=== PATIENT | female | born 1950 | race Caucasian/White ===

== ENCOUNTER 2020-03-22 18:05 | Emergency (ER) | payer OTHER | END 2020-03-22 18:20 | disposition home or self-care (01) | LOC: JVIRT 18:05 | DX: Z20.822 Contact with and (suspected) exposure to COVID-19 (principal) | CPT/HCPCS: C9803; G2012-GT; U0003 ==

== ENCOUNTER 2021-02-08 11:58 | Emergency (ER) | payer OTHER ==
[2021-02-08 12:32] VITALS: BP 174/63; PULSE 67; TEMP 98.9; BMI 30.8
[2021-02-08 13:11] LABS: EPITHELIAL CELLS MODERATE /hpf
[2021-02-08 14:00] LABS: BILIRUBIN,TOTAL 0.2 mg/dl (0.2-1); CALCIUM 8.5 mg/dl (8.5-10); CREATININE 3.3 mg/dl (0.55-1.3); TOT PROT 5.6 g/dl (6.4-8.2)
[2021-02-08 15:22] LABS: BASO % 0.8 % (0-2.0); EOS % 6.4 % (0-4.5); HEMATOCRIT 35.7 % (32.4-45.2); HEMOGLOBIN 12.1 GM/dL (10.7-15.3); LYMPH % 22.1 % (8-40); MCH 30.7 pg (25.7-33.7); MCHC 33.8 g/dl (32.0-36.0); MEAN CELL VOLUME 90.7 fl (80-96); MEAN PLT VOLUME 7.5 fl (7.5-11.1); NEUT % 64.7 % (42.8-82.8); PLATELET COUNT 252 10^3/uL (134-434); RBC 3.93 M/mm3 (3.60-5.2); RDW 14.1 % (11.6-15.6); WHITE BLOOD COUNT 8.4 K/mm3 (4.0-10.0)
[2021-02-08] MEDS ORDERED: NITROFURANTOIN MACROCRYSTAL 50 MG CAPSULE (FP) ONE (15:43)
[2021-02-08] MEDS ORDERED: NITROFURANTOIN MACROCRYSTAL 50 MG CAPSULE (FP) PO SCH (15:45)
[2021-02-10 00:07] LABS: SARS-CoV-2 NAA Not Detected (Not Detected)
== END 2021-02-08 15:50 | disposition left against medical advice (07) ==
LOC: FER 11:58
DX: N39.0 Urinary tract infection, site not specified (principal); N17.9 Acute kidney failure, unspecified; I10 Essential (primary) hypertension
CPT/HCPCS: 36415; 80053; 81003; 81015; 85025; 87086; 99283-25; C9803; U0003; U0005

== ENCOUNTER 2021-02-16 12:39 | Inpatient (IN) | payer OTHER ==
[2021-02-16] MEDS ORDERED: ONDANSETRON 4 MG/2 ML VIAL IVPUSH ONE (14:24)
[2021-02-16] MEDS ORDERED: ONDANSETRON 4 MG/2 ML VIAL ONE (14:39)
[2021-02-16 14:43] LABS: BASO % 0.7 % (0-2.0); EOS % 2.9 % (0-4.5); HEMATOCRIT 33.1 % (32.4-45.2); HEMOGLOBIN 11.1 GM/dL (10.7-15.3); LYMPH % 12.5 % (8-40); MCH 30.3 pg (25.7-33.7); MCHC 33.5 g/dl (32.0-36.0); MEAN CELL VOLUME 90.5 fl (80-96); MEAN PLT VOLUME 7.6 fl (7.5-11.1); MONO % 6.8 % (3.8-10.2); NEUT % 77.1 % (42.8-82.8); PLATELET COUNT 282 10^3/uL (134-434); RBC 3.66 M/mm3 (3.60-5.2); RDW 13.7 % (11.6-15.6); WHITE BLOOD COUNT 9.6 K/mm3 (4.0-10.0)
[2021-02-16 15:06] LABS: CHLORIDE 105 mmol/L (98-107); SODIUM 132 mmol/L (136-145)
[2021-02-16 15:08] LABS: CALCIUM 8.4 mg/dL (8.5-10.1)
[2021-02-16 15:09] LABS: ALBUMIN 2.6 g/dl (3.4-5.0); CO2 15 mmol/L (21-32); GLUCOSE,RANDOM 143 mg/dL (74-106)
[2021-02-16 15:12] LABS: CREATININE 4.9 mg/dL (0.55-1.3); SGOT/AST 26 U/L (15-37)
[2021-02-16 15:13] LABS: BILIRUBIN,TOTAL 0.2 mg/dL (0.2-1)
[2021-02-16 15:14] LABS: TOT PROT 5.6 g/dl (6.4-8.2)
[2021-02-16 15:15] LABS: ALK PHOS 67 U/L (45-117)
[2021-02-16 15:18] LABS: SGPT/ALT 38 U/L (13-61)
[2021-02-16 15:26] LABS: ANION GAP 12 MMOL/L (8-16)
[2021-02-16] MEDS ORDERED: CALCIUM GLUCONATE 10% - 1,000 MG/10 ML VIAL IVPUSH ONE (15:33)
[2021-02-16] MEDS ORDERED: INSULIN REGULAR HUMAN 100 UNITS/ML *VIAL IVPUSH ONE (15:35)
[2021-02-16] MEDS ORDERED: DEXTROSE 50%-WATER - 25 GM/50 ML VIAL IVPUSH ONE (15:35)
[2021-02-16] MEDS ORDERED: LACTATED RINGERS SOLUTION 1000 ML INFUS.BAG IV ONE (15:36)
[2021-02-16] MEDS ORDERED: DEXTROSE 50%-WATER - 25 GM/50 ML VIAL ONE (16:29)
[2021-02-16] MEDS ORDERED: CALCIUM GLUCONATE 10% - 1,000 MG/10 ML VIAL ONE (16:29)
[2021-02-16] MEDS ORDERED: DEXTROSE 50%-WATER 25 GM/50 ML DISP.SYRIN ONE (16:36)
[2021-02-16] MEDS ORDERED: ALBUTEROL SO4 0.083% IH SOL 2.5 MG/3 ML VIAL.NEB. NEB ONE ×2 (16:39→18:06)
[2021-02-16] MEDS ORDERED: SODIUM CHLORIDE 1,000 ML IV STA (17:06)
[2021-02-16] MEDS: SODIUM ZIRCONIUM CYCLOSILICATE (LOKELMA) 5 GM PACKET PO SCH (17:40)
[2021-02-16] MEDS: SODIUM BICARBONATE 8.4% 50 MEQ/50 ML DISP.SYRIN IVPUSH SCH (18:04)
[2021-02-16] MEDS ORDERED: SODIUM ZIRCONIUM CYCLOSILICATE (LOKELMA) 5 GM PACKET ONE (18:06)
[2021-02-16] MEDS ORDERED: SODIUM BICARBONATE 8.4% - 50 ML ONE (18:07)
[2021-02-16] MEDS: SODIUM BICARBONATE 8.4% - 75 MEQ in SODIUM CHLORIDE 0.45% 1,000 ML IV SCH (19:29)
[2021-02-16] MEDS: INSULIN SLIDING SCALE (NOVOLOG) 1 VIAL SQ SCH (23:13)
[2021-02-17 00:11] LABS: CHLORIDE 105 mmol/L (98-107); SODIUM 133 mmol/L (136-145)
[2021-02-17 00:12] LABS: CALCIUM 8.2 mg/dL (8.5-10.1)
[2021-02-17 00:13] LABS: ANION GAP 12 MMOL/L (8-16); CO2 16 mmol/L (21-32); GLUCOSE,RANDOM 137 mg/dL (74-106)
[2021-02-17] MEDS ORDERED: SODIUM BICARBONATE 8.4% 50 MEQ/50 ML DISP.SYRIN IVPUSH ONE (00:15)
[2021-02-17 00:16] LABS: CREATININE 4.9 mg/dL (0.55-1.3)
[2021-02-17] MEDS ORDERED: SODIUM ZIRCONIUM CYCLOSILICATE (LOKELMA) 5 GM PACKET ONE (00:26)
[2021-02-17] MEDS: SODIUM ZIRCONIUM CYCLOSILICATE (LOKELMA) 5 GM PACKET PO SCH (00:30)
[2021-02-17] MEDS ORDERED: HEPARIN NA (PORCINE) 5,000 UNITS/ML 1ML VIAL ONE (00:32)
[2021-02-17] MEDS: HEPARIN NA (PORCINE) 5,000 UNITS/ML 1ML VIAL SQ SCH ×4 (00:36→21:12)
[2021-02-17] MEDS: SODIUM BICARBONATE 8.4% 50 MEQ/50 ML DISP.SYRIN IVPUSH SCH (00:37)
[2021-02-17] MEDS ORDERED: SODIUM BICARBONATE 8.4% - 50 ML ONE (00:39)
[2021-02-17 01:11] LABS: BLOOD UREA NITROGEN 127.5 mg/dL (7-18)
[2021-02-17 02:27] LABS: EPI CELLS 28 /uL (0-25.1); HYALINE CASTS 7 /uL (0-3.1); URINE APPEARANCE CLOUDY; URINE BACTERIA 1416 /uL (0-1359); URINE BILIRUBIN NEGATIVE (NEGATIVE); URINE COLOR YELLOW; URINE GLUCOSE (UA) NEGATIVE (NEGATIVE); URINE KETONE NEGATIVE (NEGATIVE); URINE LEUK ESTERASE 1+ (NEGATIVE); URINE NITRITE NEGATIVE (NEGATIVE); URINE PROTEIN 4+ (NEGATIVE); URINE RBC 34 /uL (0-23.9); URINE UROBILINOGEN 0.2 mg/dL (0.2-1.0); URINE WBC 257 /uL (0-25.8)
[2021-02-17] MEDS: SODIUM BICARBONATE 8.4% - 75 MEQ in SODIUM CHLORIDE 0.45% 1,000 ML IV SCH ×3 (04:21→13:39)
[2021-02-17 04:53] VITALS: BMI 36.0
[2021-02-17] MEDS ORDERED: SODIUM ZIRCONIUM CYCLOSILICATE (LOKELMA) 5 GM PACKET PO SCH (05:15)
[2021-02-17] MEDS: INSULIN SLIDING SCALE (NOVOLOG) 1 VIAL SQ SCH ×4 (06:30→21:16)
[2021-02-17 07:47] LABS: BASO % 0.5 % (0-2.0); EOS % 5.4 % (0-4.5); HEMATOCRIT 28.6 % (32.4-45.2); HEMOGLOBIN 9.6 GM/dL (10.7-15.3); LYMPH % 16.1 % (8-40); MCH 29.9 pg (25.7-33.7); MCHC 33.4 g/dl (32.0-36.0); MEAN CELL VOLUME 89.5 fl (80-96); MEAN PLT VOLUME 7.9 fl (7.5-11.1); MONO % 7.5 % (3.8-10.2); NEUT % 70.5 % (42.8-82.8); PLATELET COUNT 252 10^3/uL (134-434); RDW 13.7 % (11.6-15.6); WHITE BLOOD COUNT 7.4 K/mm3 (4.0-10.0)
[2021-02-17 08:03] LABS: CHLORIDE 106 mmol/L (98-107); SODIUM 136 mmol/L (136-145)
[2021-02-17 08:12] LABS: ALBUMIN 2.3 g/dl (3.4-5.0); ANION GAP 10 MMOL/L (8-16); CALCIUM 8.1 mg/dL (8.5-10.1); CO2 20 mmol/L (21-32); MAGNESIUM 2.5 mg/dL (1.8-2.4)
[2021-02-17 08:13] LABS: GLUCOSE,RANDOM 93 mg/dL (74-106)
[2021-02-17 08:15] LABS: CREATININE 4.8 mg/dL (0.55-1.3); SGOT/AST 17 U/L (15-37); SGPT/ALT 28 U/L (13-61)
[2021-02-17 08:17] LABS: BILIRUBIN,TOTAL 0.5 mg/dL (0.2-1); TOT PROT 4.6 g/dl (6.4-8.2)
[2021-02-17 08:18] LABS: ALK PHOS 53 U/L (45-117)
[2021-02-17 09:14] LABS: PHOSPHOROUS 10.3 mg/dL (2.5-4.9)
[2021-02-17 09:25] LABS: BLOOD UREA NITROGEN 122.4 mg/dL (7-18)
[2021-02-17] MEDS: ONDANSETRON 4 MG/2 ML VIAL IVPUSH PRN ×2 (13:23→18:38)
[2021-02-17] MEDS ORDERED: PT OWN MED DRAWER 7, Y5N ONE (14:10)
[2021-02-17] MEDS: SEVELAMER CARBONATE 800 MG TAB (FP) PO SCH (16:50)
[2021-02-17] MEDS: SODIUM ZIRCONIUM CYCLOSILICATE (LOKELMA) 10 GM PACKET PO SCH (21:51)
[2021-02-18] MEDS: SODIUM BICARBONATE 8.4% - 75 MEQ in SODIUM CHLORIDE 0.45% 1,000 ML IV SCH ×3 (00:19→19:15)
[2021-02-18] MEDS: HEPARIN NA (PORCINE) 5,000 UNITS/ML 1ML VIAL SQ SCH ×3 (06:09→21:24)
[2021-02-18] MEDS: INSULIN SLIDING SCALE (NOVOLOG) 1 VIAL SQ SCH ×4 (06:09→21:24)
[2021-02-18 07:39] LABS: INR 0.97 (0.83-1.09); PROTHROMBIN TIME (PATIENT) 10.9 SEC (9.7-13.0)
[2021-02-18 07:40] LABS: ACTIVATED PTT 29.4 SECONDS (25.2-36.5)
[2021-02-18 07:43] LABS: BASO % 0.7 % (0-2.0); EOS % 8.1 % (0-4.5); HEMATOCRIT 28.9 % (32.4-45.2); HEMOGLOBIN 9.7 GM/dL (10.7-15.3); LYMPH % 18.4 % (8-40); MCH 30.3 pg (25.7-33.7); MCHC 33.7 g/dl (32.0-36.0); MEAN PLT VOLUME 8.1 fl (7.5-11.1); MONO % 8.3 % (3.8-10.2); NEUT % 64.5 % (42.8-82.8); PLATELET COUNT 253 10^3/uL (134-434); RBC 3.21 M/mm3 (3.60-5.2); RDW 13.7 % (11.6-15.6); WHITE BLOOD COUNT 7.8 K/mm3 (4.0-10.0)
[2021-02-18 08:07] LABS: CHLORIDE 102 mmol/L (98-107); SODIUM 136 mmol/L (136-145)
[2021-02-18 08:24] LABS: ANION GAP 14 MMOL/L (8-16); CALCIUM 7.6 mg/dL (8.5-10.1); CO2 20 mmol/L (21-32); MAGNESIUM 2.4 mg/dL (1.8-2.4)
[2021-02-18 08:25] LABS: GLUCOSE,RANDOM 89 mg/dL (74-106)
[2021-02-18 08:29] LABS: TOT PROT 4.8 g/dl (6.4-8.2)
[2021-02-18 08:30] LABS: ALK PHOS 55 U/L (45-117); BILIRUBIN,TOTAL 0.4 mg/dL (0.2-1); SGOT/AST 17 U/L (15-37)
[2021-02-18 08:43] LABS: SGPT/ALT 27 U/L (13-61)
[2021-02-18 08:45] LABS: BLOOD UREA NITROGEN 123.3 mg/dL (7-18)
[2021-02-18] MEDS: SEVELAMER CARBONATE 800 MG TAB (FP) PO SCH ×3 (09:15→17:08)
[2021-02-18] MEDS: SODIUM ZIRCONIUM CYCLOSILICATE (LOKELMA) 10 GM PACKET PO SCH (09:29)
[2021-02-18] MEDS: amLODIPine BESYLATE 10 MG TABLET (FP) PO SCH (11:04)
[2021-02-18] MEDS: ONDANSETRON 4 MG/2 ML VIAL IVPUSH PRN (14:12)
[2021-02-18 18:36] LABS: EPI CELLS >36 /uL (0-25.1); HYALINE CASTS 8 /uL (0-3.1); URINE APPEARANCE TURBID; URINE BACTERIA 2316 /uL (0-1359); URINE BILIRUBIN NEGATIVE (NEGATIVE); URINE COLOR YELLOW; URINE GLUCOSE (UA) NEGATIVE (NEGATIVE); URINE KETONE NEGATIVE (NEGATIVE); URINE LEUK ESTERASE 2+ (NEGATIVE); URINE NITRITE NEGATIVE (NEGATIVE); URINE PROTEIN 4+ (NEGATIVE); URINE RBC 41 /uL (0-23.9); URINE UROBILINOGEN 0.2 mg/dL (0.2-1.0); URINE WBC 623 /uL (0-25.8)
[2021-02-18 22:00] LABS: PHOSPHOROUS 8.7 mg/dL (2.5-4.9)
[2021-02-19] MEDS: HEPARIN NA (PORCINE) 5,000 UNITS/ML 1ML VIAL SQ SCH ×3 (06:14→21:55)
[2021-02-19] MEDS: INSULIN SLIDING SCALE (NOVOLOG) 1 VIAL SQ SCH ×4 (06:23→21:08)
[2021-02-19 08:25] LABS: HEMOGLOBIN 9.5 GM/dL (10.7-15.3); MCH 30.2 pg (25.7-33.7); MCHC 33.8 g/dl (32.0-36.0); MEAN CELL VOLUME 89.3 fl (80-96); MEAN PLT VOLUME 8.1 fl (7.5-11.1); PLATELET COUNT 252 10^3/uL (134-434); RBC 3.14 M/mm3 (3.60-5.2); RDW 13.5 % (11.6-15.6); WHITE BLOOD COUNT 8.3 K/mm3 (4.0-10.0)
[2021-02-19 08:33] LABS: CHLORIDE 101 mmol/L (98-107); SODIUM 136 mmol/L (136-145)
[2021-02-19 08:37] LABS: CALCIUM 7.6 mg/dL (8.5-10.1); GLUCOSE,RANDOM 132 mg/dL (74-106)
[2021-02-19 08:38] LABS: ALBUMIN 2.2 g/dl (3.4-5.0); ANION GAP 13 MMOL/L (8-16); CO2 21 mmol/L (21-32)
[2021-02-19 08:41] LABS: CREATININE 5.5 mg/dL (0.55-1.3); SGOT/AST 13 U/L (15-37); SGPT/ALT 21 U/L (13-61)
[2021-02-19] MEDS: SEVELAMER CARBONATE 800 MG TAB (FP) PO SCH ×3 (08:41→17:57)
[2021-02-19 08:42] LABS: TOT PROT 4.6 g/dl (6.4-8.2)
[2021-02-19 08:43] LABS: ALK PHOS 51 U/L (45-117); BILIRUBIN,TOTAL 0.3 mg/dL (0.2-1)
[2021-02-19] MEDS: SODIUM BICARBONATE 8.4% - 75 MEQ in SODIUM CHLORIDE 0.45% 1,000 ML IV SCH ×2 (08:57→09:08)
[2021-02-19] MEDS: SODIUM ZIRCONIUM CYCLOSILICATE (LOKELMA) 10 GM PACKET PO SCH (09:01)
[2021-02-19] MEDS: amLODIPine BESYLATE 10 MG TABLET (FP) PO SCH (09:01)
[2021-02-19 09:07] LABS: PHOSPHOROUS 8.7 mg/dL (2.5-4.9)
[2021-02-19] MEDS: ONDANSETRON 4 MG/2 ML VIAL IVPUSH PRN (10:06)
[2021-02-19 10:07] LABS: ANTIGLOMERULAR BASEMENT MEN.AB 3 units (0-20)
[2021-02-19] MEDS ORDERED: guaiFENesin 200 MG/10 ML 10 ML UNIT-DOSE CUPS PO PRN (11:05)
[2021-02-19 16:08] LABS: ATYPICAL pANCA <1:20 titer (Neg:<1:20); C-ANCA <1:20 titer (Neg:<1:20)
[2021-02-20] MEDS: ONDANSETRON 4 MG/2 ML VIAL IVPUSH PRN (01:47)
[2021-02-20] MEDS: HEPARIN NA (PORCINE) 5,000 UNITS/ML 1ML VIAL SQ SCH ×3 (05:04→22:03)
[2021-02-20] MEDS: INSULIN SLIDING SCALE (NOVOLOG) 1 VIAL SQ SCH ×4 (06:12→22:03)
[2021-02-20 07:50] LABS: HEMATOCRIT 32.5 % (32.4-45.2); MCH 30.3 pg (25.7-33.7); MCHC 33.8 g/dl (32.0-36.0); MEAN CELL VOLUME 89.6 fl (80-96); MEAN PLT VOLUME 8.4 fl (7.5-11.1); PLATELET COUNT 286 10^3/uL (134-434); RBC 3.62 M/mm3 (3.60-5.2); RDW 13.6 % (11.6-15.6); WHITE BLOOD COUNT 10.1 K/mm3 (4.0-10.0)
[2021-02-20] MEDS: SEVELAMER CARBONATE 800 MG TAB (FP) PO SCH ×3 (08:23→16:55)
[2021-02-20 08:33] LABS: CALCIUM 8.4 mg/dL (8.5-10.1); CHLORIDE 101 mmol/L (98-107); SODIUM 136 mmol/L (136-145)
[2021-02-20 08:34] LABS: ANION GAP 13 MMOL/L (8-16); CO2 22 mmol/L (21-32); GLUCOSE,RANDOM 139 mg/dL (74-106); MAGNESIUM 2.4 mg/dL (1.8-2.4)
[2021-02-20 08:37] LABS: CREATININE 6.1 mg/dL (0.55-1.3)
[2021-02-20 08:46] LABS: BLOOD UREA NITROGEN 128.1 mg/dL (7-18)
[2021-02-20 09:14] LABS: PHOSPHOROUS 8.7 mg/dL (2.5-4.9)
[2021-02-20] MEDS: SODIUM ZIRCONIUM CYCLOSILICATE (LOKELMA) 10 GM PACKET PO SCH (09:53)
[2021-02-20] MEDS: amLODIPine BESYLATE 10 MG TABLET (FP) PO SCH (09:53)
[2021-02-20] MEDS ORDERED: LIDOCAINE HCL/PF 2% SDV 5ML VIAL ONE ×2 (10:10→10:52)
[2021-02-20] MEDS ORDERED: PROPOFOL 20 ML ONE (10:11)
[2021-02-20] MEDS ORDERED: MIDAZOLAM HCL 2 MG/2 ML SINGLE DOSE VIAL ONE (10:11)
[2021-02-20] MEDS ORDERED: HEPARIN NA (PORCINE) 5,000 UNITS/ML 1ML VIAL ONE (10:20)
[2021-02-20] MEDS ORDERED: CLINDAMYCIN PHOSPHATE 600 MG/4 ML VIAL IVPB ONE (10:30)
[2021-02-20] MEDS ORDERED: BACITRACIN 15 GM TUBE TOPICAL OINTMENT ONE (10:37)
[2021-02-20] MEDS ORDERED: KETAMINE HCL 200 MG/20 ML VIAL ONE (10:56)
[2021-02-20] MEDS ORDERED: LIDOCAINE HCL 1%, 10 MG/ML (20ML VIAL) INF ONE ×2 (11:40)
[2021-02-20] MEDS ORDERED: HEPARIN NA (PORCINE) 5,000 UNITS/ML 1ML VIAL SQ ONE ×2 (11:43)
[2021-02-20] MEDS ORDERED: guaiFENesin 200 MG/10 ML 10 ML UNIT-DOSE CUPS PO PRN (12:33)
[2021-02-20] MEDS ORDERED: SODIUM CHLORIDE 250 ML IV PRN ×2 (13:45→15:45)
[2021-02-20] MEDS: POLYETHYLENE GLYCOL (HEALTHYLAX) 3350 17 GM PACKET PO SCH (22:03)
[2021-02-21] MEDS: HEPARIN NA (PORCINE) 5,000 UNITS/ML 1ML VIAL SQ SCH ×3 (06:05→21:22)
[2021-02-21] MEDS: INSULIN SLIDING SCALE (NOVOLOG) 1 VIAL SQ SCH ×4 (06:06→21:30)
[2021-02-21 07:11] LABS: HEMOGLOBIN 9.4 GM/dL (10.7-15.3); MCH 30.4 pg (25.7-33.7); MCHC 33.7 g/dl (32.0-36.0); MEAN CELL VOLUME 90.3 fl (80-96); MEAN PLT VOLUME 7.9 fl (7.5-11.1); PLATELET COUNT 246 10^3/uL (134-434); RDW 13.7 % (11.6-15.6); WHITE BLOOD COUNT 9.7 K/mm3 (4.0-10.0)
[2021-02-21 07:41] LABS: MAGNESIUM 2.5 mg/dL (1.8-2.4)
[2021-02-21 07:43] LABS: CREATININE 5.2 mg/dL (0.55-1.3)
[2021-02-21] MEDS: ONDANSETRON 4 MG/2 ML VIAL IVPUSH PRN ×2 (07:58→21:22)
[2021-02-21 08:18] LABS: BLOOD UREA NITROGEN 89.6 mg/dL (7-18); PHOSPHOROUS 8.3 mg/dL (2.5-4.9)
[2021-02-21] MEDS: SEVELAMER CARBONATE 800 MG TAB (FP) PO SCH ×3 (09:05→17:03)
[2021-02-21] MEDS: amLODIPine BESYLATE 10 MG TABLET (FP) PO SCH (09:05)
[2021-02-21] MEDS: POLYETHYLENE GLYCOL (HEALTHYLAX) 3350 17 GM PACKET PO SCH ×2 (09:06→21:22)
[2021-02-21] MEDS: predniSONE 20 MG TABLET (UD) PO SCH (09:06)
[2021-02-21] MEDS ORDERED: SODIUM ZIRCONIUM CYCLOSILICATE (LOKELMA) 10 GM PACKET PO SCH (10:00)
[2021-02-21 13:18] LABS: HIV INTERPRETATION NEGATIVE (NEGATIVE)
[2021-02-22] MEDS: HEPARIN NA (PORCINE) 5,000 UNITS/ML 1ML VIAL SQ SCH ×3 (06:01→21:26)
[2021-02-22] MEDS: INSULIN SLIDING SCALE (NOVOLOG) 1 VIAL SQ SCH ×4 (06:26→21:34)
[2021-02-22 07:29] LABS: BASO % 0.2 % (0-2.0); EOS % 0.3 % (0-4.5); HEMATOCRIT 28.5 % (32.4-45.2); HEMOGLOBIN 9.8 GM/dL (10.7-15.3); MCH 30.8 pg (25.7-33.7); MCHC 34.4 g/dl (32.0-36.0); MEAN CELL VOLUME 89.5 fl (80-96); MEAN PLT VOLUME 7.9 fl (7.5-11.1); MONO % 8.5 % (3.8-10.2); PLATELET COUNT 240 10^3/uL (134-434); RBC 3.18 M/mm3 (3.60-5.2); RDW 13.7 % (11.6-15.6)
[2021-02-22] MEDS: SEVELAMER CARBONATE 800 MG TAB (FP) PO SCH ×3 (07:46→17:23)
[2021-02-22 08:11] LABS: ALBUMIN 2.2 g/dl (3.4-5.0); CALCIUM 8.2 mg/dL (8.5-10.1)
[2021-02-22 08:12] LABS: MAGNESIUM 2.1 mg/dL (1.8-2.4)
[2021-02-22 08:15] LABS: CREATININE 4.7 mg/dL (0.55-1.3); PHOSPHOROUS 6.4 mg/dL (2.5-4.9)
[2021-02-22 08:16] LABS: BILIRUBIN,TOTAL 0.4 mg/dL (0.2-1)
[2021-02-22 08:19] LABS: BLOOD UREA NITROGEN 62.7 mg/dL (7-18)
[2021-02-22] MEDS: predniSONE 20 MG TABLET (UD) PO SCH (09:20)
[2021-02-22] MEDS: POLYETHYLENE GLYCOL (HEALTHYLAX) 3350 17 GM PACKET PO SCH ×2 (09:20→21:26)
[2021-02-22] MEDS: amLODIPine BESYLATE 10 MG TABLET (FP) PO SCH (09:20)
[2021-02-22] MEDS: ONDANSETRON 4 MG/2 ML VIAL IVPUSH PRN (11:02)
[2021-02-22] MEDS ORDERED: INSULIN (NOVOLOG) ASPART 100 UNITS/ML 10ML VIAL ONE (11:32)
[2021-02-23] MEDS: HEPARIN NA (PORCINE) 5,000 UNITS/ML 1ML VIAL SQ SCH ×3 (06:41→21:25)
[2021-02-23] MEDS: INSULIN SLIDING SCALE (NOVOLOG) 1 VIAL SQ SCH ×4 (06:47→21:25)
[2021-02-23 07:58] LABS: HEMATOCRIT 29.5 % (32.4-45.2); HEMOGLOBIN 9.9 GM/dL (10.7-15.3); MCH 30.6 pg (25.7-33.7); MCHC 33.6 g/dl (32.0-36.0); MEAN CELL VOLUME 91.1 fl (80-96); MEAN PLT VOLUME 8.2 fl (7.5-11.1); PLATELET COUNT 237 10^3/uL (134-434); RBC 3.24 M/mm3 (3.60-5.2); RDW 13.7 % (11.6-15.6); WHITE BLOOD COUNT 10.9 K/mm3 (4.0-10.0)
[2021-02-23] MEDS: SEVELAMER CARBONATE 800 MG TAB (FP) PO SCH ×3 (08:00→17:54)
[2021-02-23 08:24] LABS: BLOOD UREA NITROGEN 71.3 mg/dL (7-18); CALCIUM 8.1 mg/dL (8.5-10.1); CREATININE 5.5 mg/dL (0.55-1.3); MAGNESIUM 2.3 mg/dL (1.8-2.4); PHOSPHOROUS 6.7 mg/dL (2.5-4.9)
[2021-02-23] MEDS: predniSONE 20 MG TABLET (UD) PO SCH (13:22)
[2021-02-23] MEDS: amLODIPine BESYLATE 10 MG TABLET (FP) PO SCH (13:22)
[2021-02-23] MEDS: POLYETHYLENE GLYCOL (HEALTHYLAX) 3350 17 GM PACKET PO SCH ×2 (13:22→21:23)
[2021-02-23] MEDS ORDERED: SODIUM CHLORIDE 250 ML IV PRN (13:25)
[2021-02-23] MEDS: INSULIN (LEVEMIR) 100 UNITS/ML UNITS SQ SCH (21:24)
[2021-02-24] MEDS: HEPARIN NA (PORCINE) 5,000 UNITS/ML 1ML VIAL SQ SCH ×3 (05:40→22:06)
[2021-02-24] MEDS: INSULIN SLIDING SCALE (NOVOLOG) 1 VIAL SQ SCH ×4 (06:09→22:08)
[2021-02-24 07:32] LABS: HEMATOCRIT 28.6 % (32.4-45.2); HEMOGLOBIN 9.8 GM/dL (10.7-15.3); MCH 30.9 pg (25.7-33.7); MCHC 34.3 g/dl (32.0-36.0); MEAN CELL VOLUME 90.3 fl (80-96); MEAN PLT VOLUME 7.9 fl (7.5-11.1); PLATELET COUNT 209 10^3/uL (134-434); RBC 3.17 M/mm3 (3.60-5.2); RDW 13.3 % (11.6-15.6); WHITE BLOOD COUNT 10.1 K/mm3 (4.0-10.0)
[2021-02-24 08:05] LABS: CALCIUM 7.9 mg/dL (8.5-10.1)
[2021-02-24 08:06] LABS: BLOOD UREA NITROGEN 49.8 mg/dL (7-18); MAGNESIUM 2.4 mg/dL (1.8-2.4)
[2021-02-24 08:09] LABS: CREATININE 4.4 mg/dL (0.55-1.3); PHOSPHOROUS 5.8 mg/dL (2.5-4.9)
[2021-02-24] MEDS: SEVELAMER CARBONATE 800 MG TAB (FP) PO SCH ×3 (08:55→17:44)
[2021-02-24] MEDS ORDERED: ONDANSETRON 4 MG/2 ML VIAL IVPUSH ONE (10:10)
[2021-02-24] MEDS: predniSONE 20 MG TABLET (UD) PO SCH (10:34)
[2021-02-24] MEDS: amLODIPine BESYLATE 10 MG TABLET (FP) PO SCH (10:34)
[2021-02-24] MEDS: POLYETHYLENE GLYCOL (HEALTHYLAX) 3350 17 GM PACKET PO SCH ×2 (10:35→22:04)
[2021-02-24] MEDS: INSULIN (LEVEMIR) 100 UNITS/ML UNITS SQ SCH (22:07)
[2021-02-25] MEDS: HEPARIN NA (PORCINE) 5,000 UNITS/ML 1ML VIAL SQ SCH ×2 (06:18→13:34)
[2021-02-25] MEDS: INSULIN SLIDING SCALE (NOVOLOG) 1 VIAL SQ SCH ×3 (06:20→17:08)
[2021-02-25] MEDS: SEVELAMER CARBONATE 800 MG TAB (FP) PO SCH ×2 (07:45→13:34)
[2021-02-25 08:08] LABS: HEMATOCRIT 29.2 % (32.4-45.2); HEMOGLOBIN 9.5 GM/dL (10.7-15.3); MCH 29.4 pg (25.7-33.7); MCHC 32.5 g/dl (32.0-36.0); MEAN CELL VOLUME 90.6 fl (80-96); MEAN PLT VOLUME 8.2 fl (7.5-11.1); PLATELET COUNT 213 10^3/uL (134-434); RBC 3.22 M/mm3 (3.60-5.2); RDW 13.4 % (11.6-15.6); WHITE BLOOD COUNT 11.9 K/mm3 (4.0-10.0)
[2021-02-25 08:39] LABS: BLOOD UREA NITROGEN 63.7 mg/dL (7-18)
[2021-02-25 08:42] LABS: MAGNESIUM 2.6 mg/dL (1.8-2.4)
[2021-02-25 08:43] LABS: CREATININE 5.4 mg/dL (0.55-1.3)
[2021-02-25] MEDS ORDERED: SODIUM CHLORIDE 250 ML IV PRN (12:00)
[2021-02-25] MEDS: POLYETHYLENE GLYCOL (HEALTHYLAX) 3350 17 GM PACKET PO SCH (13:32)
[2021-02-25] MEDS: amLODIPine BESYLATE 10 MG TABLET (FP) PO SCH (13:32)
[2021-02-25] MEDS: predniSONE 20 MG TABLET (UD) PO SCH (13:33)
[2021-02-25 14:31] VITALS: BP 147/55; PULSE 76; TEMP 97.3
== END 2021-02-25 18:11 | disposition home or self-care (01) | DRG 683 ==
LOC: JER 12:39 → JERBED 17:22 → J4W 02-17 03:56
PROVIDERS: ADMIT Internal Medicine
PROC: B518ZZA Fluoroscopy of Superior Vena Cava, Guidance (ICD-10-PCS; 2021-02-20)
PROC: 02H633Z Insertion of Infusion Device into Right Atrium, Percutaneous Approach (ICD-10-PCS; principal; 2021-02-20 11:30)
PROC: 0HBLXZX Excision of Left Lower Leg Skin, External Approach, Diagnostic (ICD-10-PCS; 2021-02-25)
PROC: 5A1D70Z Performance of Urinary Filtration, Intermittent, Less than 6 Hours Per Day (ICD-10-PCS; 2021-02-25)
DX: I12.0 Hypertensive chronic kidney disease with stage 5 chronic kidney disease or end stage renal disease (principal); N17.9 Acute kidney failure, unspecified; N18.5 Chronic kidney disease, stage 5; E87.5 Hyperkalemia; E11.9 Type 2 diabetes mellitus without complications; R21 Rash and other nonspecific skin eruption; E87.70 Fluid overload, unspecified; E78.5 Hyperlipidemia, unspecified; E66.9 Obesity, unspecified; Z68.36 Body mass index [BMI] 36.0-36.9, adult
CPT/HCPCS: 36415; 50200; 71045-TC-FY; 71046-TC-FY; 73502-TC-RT-FY; 76000-TC-FY; 76775-TC; 76856-TC; 80048; 80053; 81003; 82436; 82570; 82962; 83516; 83520; 83735; 84100; 84133; 84155; 84156; 84165; 84300; 85025; 85027; 85610; 85730; 86038; 86160; 86225; 86256; 86803; 87040; 87086; 87340; 87389; 87517; 87522; 93005; 93010; 94760; 97116-GP; 97161-GP; 99285-25; C9803; J1644; U0003; U0005

== ENCOUNTER 2021-03-30 20:30 | Emergency (ER) | payer OTHER ==
[2021-03-30 20:42] VITALS: BP 150/68; PULSE 72; TEMP 98.1; BMI 35.2
[2021-03-30] MEDS ORDERED: ACETAMINOPHEN 325 MG TABLET (FP) PO ONE (21:33)
[2021-03-30] MEDS ORDERED: ACETAMINOPHEN 325 MG TABLET (FP) ONE (22:26)
[2021-03-31] MEDS ORDERED: LIDOCAINE 5% TOPICAL PATCH TP ONE (00:41)
[2021-03-31] MEDS ORDERED: LIDOCAINE 5% TOPICAL PATCH ONE (00:44)
[2021-03-31] MEDS ORDERED: LIDOCAINE PATCH REMOVAL MC SCH (22:00)
== END 2021-03-31 01:19 | disposition home or self-care (01) ==
LOC: JER 20:30
DX: R10.31 Right lower quadrant pain (principal); W01.0XXA Fall on same level from slipping, tripping and stumbling without subsequent striking against object, initial encounter
CPT/HCPCS: 71045-TC-FY; 71046-TC-FY; 72170-TC-FY; 73030-TC-RT-FY; 93005; 93010; 99285-25

== ENCOUNTER 2021-04-03 12:25 | Emergency (ER) | payer OTHER ==
[2021-04-03 13:11] VITALS: TEMP 98.8; BMI 32.2
[2021-04-03] MEDS ORDERED: ACETAMINOPHEN 1000 MG/100 ML BAG IVPB ONE (14:11)
[2021-04-03 15:04] LABS: BASO % 0.9 % (0-2.0); EOS % 0.4 % (0-4.5); HEMATOCRIT 31.2 % (32.4-45.2); HEMOGLOBIN 10.5 GM/dL (10.7-15.3); LYMPH % 11.1 % (8-40); MCHC 33.7 g/dl (32.0-36.0); MEAN PLT VOLUME 7.1 fl (7.5-11.1); MONO % 5.2 % (3.8-10.2); NEUT % 82.4 % (42.8-82.8); PLATELET COUNT 221 10^3/uL (134-434); RDW 15.4 % (11.6-15.6); WHITE BLOOD COUNT 9.2 K/mm3 (4.0-10.0)
[2021-04-03 15:27] LABS: CALCIUM 8.8 mg/dL (8.5-10.1)
[2021-04-03 15:28] LABS: ALBUMIN 2.7 g/dl (3.4-5.0); MAGNESIUM 2.3 mg/dL (1.8-2.4)
[2021-04-03 15:31] LABS: CREATININE 4.1 mg/dL (0.55-1.3); PHOSPHOROUS 4.2 mg/dL (2.5-4.9)
[2021-04-03 15:32] LABS: BILIRUBIN,TOTAL 0.4 mg/dL (0.2-1)
[2021-04-03 15:33] LABS: TOT PROT 5.4 g/dl (6.4-8.2)
[2021-04-03] MEDS ORDERED: ACETAMINOPHEN INJECTION 100 ML IVPB ONE (16:25)
[2021-04-03 19:00] VITALS: BP 139/51; PULSE 75
== END 2021-04-03 19:34 | disposition home or self-care (01) ==
LOC: JER 12:25
PROC: 3E033GC Introduction of Other Therapeutic Substance into Peripheral Vein, Percutaneous Approach (ICD-10-PCS; principal; 2021-04-03)
DX: R07.81 Pleurodynia (principal); M25.552 Pain in left hip; M25.511 Pain in right shoulder
CPT/HCPCS: 36415; 71250-TC; 72170-TC-FY; 72192-TC; 73552-TC-LT-FY; 80053; 83735; 84100; 85025; 93005; 93010; 99285-25

== ENCOUNTER 2021-07-09 10:40 | Inpatient (IN) | payer OTHER ==
[2021-07-09 11:47] LABS: BASO % 0.9 % (0-2.0); EOS % 4.3 % (0-4.5); HEMATOCRIT 33.5 % (32.4-45.2); HEMOGLOBIN 11.4 GM/dL (10.7-15.3); MCH 30.9 pg (25.7-33.7); MEAN PLT VOLUME 7.3 fl (7.5-11.1); MONO % 7.4 % (3.8-10.2); NEUT % 68.4 % (42.8-82.8); PLATELET COUNT 221 10^3/uL (134-434); RBC 3.68 M/mm3 (3.60-5.2); RDW 13.7 % (11.6-15.6); WHITE BLOOD COUNT 8.7 K/mm3 (4.0-10.0)
[2021-07-09 11:57] LABS: INR 0.94 (0.83-1.09); PROTHROMBIN TIME (PATIENT) 10.8 SEC (9.7-13.0)
[2021-07-09 12:12] LABS: ALBUMIN 2.4 g/dl (3.4-5.0); BLOOD UREA NITROGEN 40.9 mg/dL (7-18); CALCIUM 8.6 mg/dL (8.5-10.1)
[2021-07-09 12:13] LABS: MAGNESIUM 2.3 mg/dL (1.8-2.4)
[2021-07-09 12:15] LABS: CREATININE 3.1 mg/dL (0.55-1.3)
[2021-07-09 12:17] LABS: BILIRUBIN,TOTAL 0.3 mg/dL (0.2-1); TOT PROT 5.5 g/dl (6.4-8.2)
[2021-07-09] MEDS ORDERED: HEPARIN NA (PORCINE) 5,000 UNITS/ML 1ML VIAL IVPUSH ONE (13:17)
[2021-07-09] MEDS ORDERED: HEPARIN NA (PORCINE) 5,000 UNITS/ML 1ML VIAL IVPUSH PRN (13:17)
[2021-07-09] MEDS ORDERED: HEPARIN INFUSION - 25,000 UNITS/500 ML INFUS.BAG IVPB ONE (13:45)
[2021-07-09] MEDS ORDERED: HEPARIN NA (PORCINE) 5,000 UNITS/ML 1ML VIAL ONE (13:45)
[2021-07-09] MEDS: HEPARIN - 25,000 UNIT in SODIUM CHLORIDE 495 ML IV SCH (13:48)
[2021-07-09] MEDS ORDERED: SODIUM CHLORIDE 250 ML IV PRN (15:42)
[2021-07-09] MEDS ORDERED: ONDANSETRON *ODT* 4 MG TABLET SL PRN (15:47)
[2021-07-09 16:30] LABS: EPI CELLS >36 /uL (0-25.1); HYALINE CASTS 2 /uL (0-3.1); URINE APPEARANCE CLOUDY; URINE BACTERIA 6225 /uL (0-1359); URINE BILIRUBIN NEGATIVE (NEGATIVE); URINE COLOR YELLOW; URINE GLUCOSE (UA) TRACE (NEGATIVE); URINE KETONE NEGATIVE (NEGATIVE); URINE LEUK ESTERASE 1+ (NEGATIVE); URINE NITRITE NEGATIVE (NEGATIVE); URINE PROTEIN 4+ (NEGATIVE); URINE RBC 52 /uL (0-23.9); URINE UROBILINOGEN 0.2 mg/dL (0.2-1.0); URINE WBC 170 /uL (0-25.8)
[2021-07-09] MEDS: INSULIN SLIDING SCALE (NOVOLOG) 1 VIAL SQ SCH ×2 (17:44→21:22)
[2021-07-09] MEDS ORDERED: NICOTINE 14 MG/24 HOURS TOPICAL PATCH TD ONE (17:56)
[2021-07-09] MEDS: NICOTINE 14 MG/24 HOURS TOPICAL PATCH TD SCH (18:00)
[2021-07-10] MEDS: INSULIN SLIDING SCALE (NOVOLOG) 1 VIAL SQ SCH ×4 (06:27→22:28)
[2021-07-10 08:57] LABS: BASO % 1.2 % (0-2.0); HEMATOCRIT 34.8 % (32.4-45.2); HEMOGLOBIN 11.4 GM/dL (10.7-15.3); LYMPH % 19.5 % (8-40); MCH 30.2 pg (25.7-33.7); MCHC 32.8 g/dl (32.0-36.0); MEAN CELL VOLUME 91.9 fl (80-96); MONO % 6.6 % (3.8-10.2); NEUT % 66.7 % (42.8-82.8); PLATELET COUNT 206 10^3/uL (134-434); RBC 3.79 M/mm3 (3.60-5.2); RDW 13.8 % (11.6-15.6); WHITE BLOOD COUNT 8.6 K/mm3 (4.0-10.0)
[2021-07-10] MEDS: SEVELAMER CARBONATE 800 MG TAB (FP) PO SCH ×5 (09:05→17:11)
[2021-07-10 09:18] LABS: CALCIUM 8.7 mg/dL (8.5-10.1)
[2021-07-10 09:19] LABS: ALBUMIN 2.6 g/dl (3.4-5.0); BLOOD UREA NITROGEN 45.9 mg/dL (7-18); MAGNESIUM 2.4 mg/dL (1.8-2.4)
[2021-07-10 09:22] LABS: CREATININE 2.7 mg/dL (0.55-1.3); PHOSPHOROUS 4.7 mg/dL (2.5-4.9)
[2021-07-10 09:23] LABS: TOT PROT 5.6 g/dl (6.4-8.2)
[2021-07-10 09:24] LABS: BILIRUBIN,TOTAL 0.4 mg/dL (0.2-1)
[2021-07-10] MEDS: amLODIPine BESYLATE 10 MG TABLET (FP) PO SCH (09:27)
[2021-07-10] MEDS: PANTOPRAZOLE 40 MG TABLET PO SCH (09:27)
[2021-07-10] MEDS: NICOTINE 14 MG/24 HOURS TOPICAL PATCH TD SCH (09:27)
[2021-07-10] MEDS: HEPARIN - 25,000 UNIT in SODIUM CHLORIDE 495 ML IV SCH (14:40)
[2021-07-11] MEDS: INSULIN SLIDING SCALE (NOVOLOG) 1 VIAL SQ SCH ×4 (06:19→22:32)
[2021-07-11 08:49] LABS: HEMATOCRIT 30.8 % (32.4-45.2); HEMOGLOBIN 10.5 GM/dL (10.7-15.3); MCHC 33.9 g/dl (32.0-36.0); MEAN CELL VOLUME 91.4 fl (80-96); MEAN PLT VOLUME 7.4 fl (7.5-11.1); PLATELET COUNT 211 10^3/uL (134-434); RBC 3.37 M/mm3 (3.60-5.2); WHITE BLOOD COUNT 7.4 K/mm3 (4.0-10.0)
[2021-07-11] MEDS: SEVELAMER CARBONATE 800 MG TAB (FP) PO SCH ×3 (08:52→16:56)
[2021-07-11] MEDS: amLODIPine BESYLATE 10 MG TABLET (FP) PO SCH (09:04)
[2021-07-11] MEDS: PANTOPRAZOLE 40 MG TABLET PO SCH (09:04)
[2021-07-11] MEDS: NICOTINE 14 MG/24 HOURS TOPICAL PATCH TD SCH (09:04)
[2021-07-11] MEDS: HEPARIN - 25,000 UNIT in SODIUM CHLORIDE 495 ML IV SCH (16:59)
[2021-07-12] MEDS: INSULIN SLIDING SCALE (NOVOLOG) 1 VIAL SQ SCH ×5 (06:03→22:04)
[2021-07-12 08:49] LABS: BASO % 0.6 % (0-2.0); EOS % 6.4 % (0-4.5); HEMATOCRIT 32.1 % (32.4-45.2); LYMPH % 18.6 % (8-40); MCH 31.3 pg (25.7-33.7); MCHC 34.4 g/dl (32.0-36.0); MEAN CELL VOLUME 90.8 fl (80-96); MEAN PLT VOLUME 7.4 fl (7.5-11.1); MONO % 6.9 % (3.8-10.2); NEUT % 67.5 % (42.8-82.8); PLATELET COUNT 220 10^3/uL (134-434); RBC 3.53 M/mm3 (3.60-5.2); RDW 13.6 % (11.6-15.6); WHITE BLOOD COUNT 7.9 K/mm3 (4.0-10.0)
[2021-07-12] MEDS: SEVELAMER CARBONATE 800 MG TAB (FP) PO SCH ×3 (08:53→17:09)
[2021-07-12] MEDS: amLODIPine BESYLATE 10 MG TABLET (FP) PO SCH (09:34)
[2021-07-12] MEDS: PANTOPRAZOLE 40 MG TABLET PO SCH (09:34)
[2021-07-12] MEDS: NICOTINE 14 MG/24 HOURS TOPICAL PATCH TD SCH (09:34)
[2021-07-12 09:41] LABS: BLOOD UREA NITROGEN 39.6 mg/dL (7-18); CALCIUM 8.6 mg/dL (8.5-10.1); CREATININE 2.6 mg/dL (0.55-1.3)
[2021-07-12 11:47] LABS: HEMATOCRIT 33.8 % (32.4-45.2); HEMOGLOBIN 11.3 GM/dL (10.7-15.3); MCH 30.6 pg (25.7-33.7); MCHC 33.4 g/dl (32.0-36.0); MEAN CELL VOLUME 91.6 fl (80-96); MEAN PLT VOLUME 9.1 fl (7.5-11.1); PLATELET COUNT 198 10^3/uL (134-434); RBC 3.69 M/mm3 (3.60-5.2); RDW 14.1 % (11.6-15.6); WHITE BLOOD COUNT 7.8 K/mm3 (4.0-10.0)
[2021-07-12] MEDS ORDERED: SODIUM CHLORIDE 250 ML IV PRN (13:20)
[2021-07-12] MEDS: HEPARIN - 25,000 UNIT in SODIUM CHLORIDE 495 ML IV SCH (18:05)
[2021-07-13] MEDS ORDERED: INSULIN (NOVOLOG) ASPART 100 UNITS/ML 10ML VIAL ONE (07:58)
[2021-07-13] MEDS: INSULIN SLIDING SCALE (NOVOLOG) 1 VIAL SQ SCH ×4 (08:01→21:27)
[2021-07-13] MEDS: SEVELAMER CARBONATE 800 MG TAB (FP) PO SCH ×3 (08:01→17:37)
[2021-07-13 08:52] LABS: HEMATOCRIT 31.6 % (32.4-45.2); HEMOGLOBIN 10.5 GM/dL (10.7-15.3); MCH 30.8 pg (25.7-33.7); MCHC 33.2 g/dl (32.0-36.0); MEAN CELL VOLUME 92.7 fl (80-96); MEAN PLT VOLUME 7.4 fl (7.5-11.1); PLATELET COUNT 244 10^3/uL (134-434); RBC 3.42 M/mm3 (3.60-5.2); RDW 13.9 % (11.6-15.6); WHITE BLOOD COUNT 8.6 K/mm3 (4.0-10.0)
[2021-07-13] MEDS: amLODIPine BESYLATE 10 MG TABLET (FP) PO SCH (12:02)
[2021-07-13] MEDS: NICOTINE 14 MG/24 HOURS TOPICAL PATCH TD SCH (12:02)
[2021-07-13] MEDS: PANTOPRAZOLE 40 MG TABLET PO SCH (12:02)
[2021-07-13] MEDS: HEPARIN - 25,000 UNIT in SODIUM CHLORIDE 495 ML IV SCH (20:06)
[2021-07-13] MEDS: ACETAMINOPHEN 325 MG TABLET (FP) PO PRN (21:26)
[2021-07-14] MEDS: ACETAMINOPHEN 325 MG TABLET (FP) PO PRN ×4 (03:47→21:50)
[2021-07-14] MEDS: INSULIN SLIDING SCALE (NOVOLOG) 1 VIAL SQ SCH ×4 (06:17→21:50)
[2021-07-14 09:00] LABS: HEMATOCRIT 29.3 % (32.4-45.2); HEMOGLOBIN 9.8 GM/dL (10.7-15.3); MCHC 33.6 g/dl (32.0-36.0); MEAN CELL VOLUME 92.2 fl (80-96); MEAN PLT VOLUME 7.8 fl (7.5-11.1); PLATELET COUNT 230 10^3/uL (134-434); RBC 3.17 M/mm3 (3.60-5.2); RDW 13.8 % (11.6-15.6); WHITE BLOOD COUNT 8.1 K/mm3 (4.0-10.0)
[2021-07-14] MEDS: amLODIPine BESYLATE 10 MG TABLET (FP) PO SCH (09:09)
[2021-07-14] MEDS: PANTOPRAZOLE 40 MG TABLET PO SCH (09:09)
[2021-07-14] MEDS: NICOTINE 14 MG/24 HOURS TOPICAL PATCH TD SCH (09:09)
[2021-07-14] MEDS: SEVELAMER CARBONATE 800 MG TAB (FP) PO SCH ×3 (09:09→16:37)
[2021-07-14 10:30] VITALS: BMI 29.2
[2021-07-14] MEDS: HEPARIN - 25,000 UNIT in SODIUM CHLORIDE 495 ML IV SCH (12:48)
[2021-07-14] MEDS: HEPARIN NA (PORCINE) 5,000 UNITS/ML 1ML VIAL IVPUSH PRN ×2 (12:51→20:41)
[2021-07-14 15:11] LABS: INR 0.97 (0.83-1.09); PROTHROMBIN TIME (PATIENT) 11.2 SEC (9.7-13.0)
[2021-07-14] MEDS: WARFARIN NA 5 MG TABLET PO SCH (17:35)
[2021-07-15 04:06] LABS: ACTIVATED PTT 54.5 SECONDS (25.2-36.5); INR 1.01 (0.83-1.09); PROTHROMBIN TIME (PATIENT) 11.6 SEC (9.7-13.0)
[2021-07-15] MEDS: ACETAMINOPHEN 325 MG TABLET (FP) PO PRN ×2 (06:02→21:41)
[2021-07-15] MEDS: INSULIN SLIDING SCALE (NOVOLOG) 1 VIAL SQ SCH ×4 (06:03→21:31)
[2021-07-15] MEDS: SEVELAMER CARBONATE 800 MG TAB (FP) PO SCH ×3 (07:53→17:21)
[2021-07-15 09:05] LABS: HEMATOCRIT 31.8 % (32.4-45.2); HEMOGLOBIN 10.8 GM/dL (10.7-15.3); MCH 31.1 pg (25.7-33.7); MCHC 33.8 g/dl (32.0-36.0); MEAN CELL VOLUME 91.9 fl (80-96); MEAN PLT VOLUME 7.7 fl (7.5-11.1); PLATELET COUNT 224 10^3/uL (134-434); RBC 3.46 M/mm3 (3.60-5.2); WHITE BLOOD COUNT 8.5 K/mm3 (4.0-10.0)
[2021-07-15] MEDS: amLODIPine BESYLATE 10 MG TABLET (FP) PO SCH (09:41)
[2021-07-15] MEDS: PANTOPRAZOLE 40 MG TABLET PO SCH (09:41)
[2021-07-15] MEDS: NICOTINE 14 MG/24 HOURS TOPICAL PATCH TD SCH (09:41)
[2021-07-15 10:16] LABS: BLOOD UREA NITROGEN 35.6 mg/dL (7-18); CALCIUM 8.8 mg/dL (8.5-10.1)
[2021-07-15 10:19] LABS: CREATININE 2.2 mg/dL (0.55-1.3)
[2021-07-15] MEDS: WARFARIN NA 5 MG TABLET PO SCH (17:21)
[2021-07-15] MEDS: HEPARIN - 25,000 UNIT in SODIUM CHLORIDE 495 ML IV SCH (19:50)
[2021-07-15] MEDS ORDERED: INSULIN (NOVOLOG) ASPART 100 UNITS/ML 10ML VIAL ONE (21:24)
[2021-07-16] MEDS: INSULIN SLIDING SCALE (NOVOLOG) 1 VIAL SQ SCH ×4 (06:29→21:59)
[2021-07-16] MEDS: ACETAMINOPHEN 325 MG TABLET (FP) PO PRN ×2 (09:39→21:59)
[2021-07-16 09:42] LABS: INR 1.32 (0.83-1.09); PROTHROMBIN TIME (PATIENT) 15.2 SEC (9.7-13.0)
[2021-07-16] MEDS: PANTOPRAZOLE 40 MG TABLET PO SCH (09:42)
[2021-07-16] MEDS: amLODIPine BESYLATE 10 MG TABLET (FP) PO SCH (09:42)
[2021-07-16] MEDS: NICOTINE 14 MG/24 HOURS TOPICAL PATCH TD SCH (09:43)
[2021-07-16] MEDS: SEVELAMER CARBONATE 800 MG TAB (FP) PO SCH ×3 (09:43→17:03)
[2021-07-16] MEDS ORDERED: CEFTRIAXONE 1,000 MG in DEXTROSE 5%-WATER - 50 ML IVPB SCH (11:15)
[2021-07-16] MEDS: HEPARIN - 25,000 UNIT in SODIUM CHLORIDE 495 ML IV SCH ×2 (15:42→20:44)
[2021-07-16] MEDS: WARFARIN NA 5 MG TABLET PO SCH (17:03)
[2021-07-16] MEDS ORDERED: INSULIN (NOVOLOG) ASPART 100 UNITS/ML 10ML VIAL ONE (17:09)
[2021-07-17] MEDS: ACETAMINOPHEN 325 MG TABLET (FP) PO PRN (06:01)
[2021-07-17] MEDS: INSULIN SLIDING SCALE (NOVOLOG) 1 VIAL SQ SCH ×3 (06:02→17:57)
[2021-07-17] MEDS: SEVELAMER CARBONATE 800 MG TAB (FP) PO SCH ×4 (09:59→17:16)
[2021-07-17] MEDS: amLODIPine BESYLATE 10 MG TABLET (FP) PO SCH ×2 (10:01→14:32)
[2021-07-17 11:07] LABS: BASO % 0.9 % (0-2.0); EOS % 7.5 % (0-4.5); HEMATOCRIT 27.1 % (32.4-45.2); HEMOGLOBIN 9.1 GM/dL (10.7-15.3); LYMPH % 17.2 % (8-40); MCH 30.9 pg (25.7-33.7); MCHC 33.5 g/dl (32.0-36.0); MEAN CELL VOLUME 92.2 fl (80-96); MEAN PLT VOLUME 7.7 fl (7.5-11.1); NEUT % 68.4 % (42.8-82.8); PLATELET COUNT 246 10^3/uL (134-434); RBC 2.94 M/mm3 (3.60-5.2); RDW 13.8 % (11.6-15.6); WHITE BLOOD COUNT 6.5 K/mm3 (4.0-10.0)
[2021-07-17 11:39] LABS: CALCIUM 8.4 mg/dL (8.5-10.1)
[2021-07-17 11:42] LABS: CREATININE 2.6 mg/dL (0.55-1.3)
[2021-07-17 11:44] LABS: BILIRUBIN,TOTAL 0.2 mg/dL (0.2-1); TOT PROT 4.6 g/dl (6.4-8.2)
[2021-07-17 11:47] LABS: ALBUMIN 1.9 g/dl (3.4-5.0)
[2021-07-17] MEDS ORDERED: SODIUM CHLORIDE 250 ML IV PRN (12:09)
[2021-07-17] MEDS: PANTOPRAZOLE 40 MG TABLET PO SCH ×2 (13:37→14:32)
[2021-07-17] MEDS: NICOTINE 14 MG/24 HOURS TOPICAL PATCH TD SCH (13:38)
[2021-07-17 14:49] VITALS: BP 154/72; PULSE 83; TEMP 98.2
[2021-07-17] MEDS ORDERED: APIXABAN 5 MG TABLET PO SCH (17:15)
[2021-07-17] MEDS: HEPARIN - 25,000 UNIT in SODIUM CHLORIDE 495 ML IV SCH (17:56)
== END 2021-07-17 19:40 | disposition home or self-care (01) | DRG 315 ==
LOC: JER 10:40 → JERBED 15:31 → J7W 20:19
PROVIDERS: ADMIT Internal Medicine
PROC: 5A1D70Z Performance of Urinary Filtration, Intermittent, Less than 6 Hours Per Day (ICD-10-PCS; principal; 2021-07-10)
PROC: 5A1D70Z Performance of Urinary Filtration, Intermittent, Less than 6 Hours Per Day (ICD-10-PCS; 2021-07-13)
PROC: 5A1D70Z Performance of Urinary Filtration, Intermittent, Less than 6 Hours Per Day (ICD-10-PCS; 2021-07-17)
DX: T82.868A Thrombosis due to vascular prosthetic devices, implants and grafts, initial encounter (principal); I12.0 Hypertensive chronic kidney disease with stage 5 chronic kidney disease or end stage renal disease; D68.59 Other primary thrombophilia; N17.9 Acute kidney failure, unspecified; N18.5 Chronic kidney disease, stage 5; Y83.8 Other surgical procedures as the cause of abnormal reaction of the patient, or of later complication, without mention of misadventure at the time of the procedure; E11.22 Type 2 diabetes mellitus with diabetic chronic kidney disease; Z99.2 Dependence on renal dialysis; E78.5 Hyperlipidemia, unspecified; E66.9 Obesity, unspecified; Z68.30 Body mass index [BMI] 30.0-30.9, adult
CPT/HCPCS: 0241U-QW; 36415; 71045-TC-FY; 71250-TC; 74176-TC; 80048; 80053; 81003; 82962; 83735; 83880; 84100; 84484; 85025; 85027; 85610; 85730; 86304; 86803; 86850; 86900; 86901; 87086; 87340; 93005; 93010; 93970-TC; 93971; 97116-GP; 97161-GP; 99285-25; J1644

== ENCOUNTER 2021-09-04 17:06 | Emergency (ER) | payer OTHER ==
[2021-09-04 17:49] VITALS: BP 133/57; PULSE 64; RESP 18; TEMP 98.5; BMI 29.2
[2021-09-04] MEDS ORDERED: BEBTELOVIMAB (EUA) 175 MG/2 ML VIAL IVPUSH ONE (18:12)
== END 2021-09-04 20:56 | disposition home or self-care (01) ==
LOC: JER 17:06 → JCOVINFU 17:06
DX: U07.1 COVID-19 (principal)
CPT/HCPCS: 99284-25; M0222; Q0222

== ENCOUNTER 2023-09-29 15:57 | Inpatient (IN) | payer OTHER ==
[2023-09-29] MEDS: morphine CARPU-JECT 2 MG/1 ML DISP.SYRIN IVPUSH ONE ×3 (17:15→20:38)
[2023-09-29] MEDS ORDERED: MORPHINE SULFATE 2 MG/ML SYRINGE ONE ×2 (17:32→20:32)
[2023-09-29] MEDS: SODIUM CHLORIDE 1,000 ML IV STA (17:45)
[2023-09-29 18:03] LABS: BASO % 0.5 % (0-2.0); EOS % 1.9 % (0-4.5); HEMATOCRIT 33.2 % (32.4-45.2); HEMOGLOBIN 11.4 GM/dL (10.7-15.3); MCH 30.9 pg (25.7-33.7); MCHC 34.4 g/dl (32.0-36.0); MEAN CELL VOLUME 89.8 fl (80-96); MEAN PLT VOLUME 7.1 fl (7.5-11.1); MONO % 7.5 % (3.8-10.2); NEUT % 76.1 % (42.8-82.8); PLATELET COUNT 220 10^3/uL (134-434); RDW 14.1 % (11.6-15.6); WHITE BLOOD COUNT 9.2 K/mm3 (4.0-10.0)
[2023-09-29 18:09] LABS: INR 0.95 (0.83-1.09); PROTHROMBIN TIME (PATIENT) 10.9 SEC (9.7-13.0)
[2023-09-29 18:12] LABS: ACTIVATED PTT 33.1 SECONDS (25.2-36.5)
[2023-09-29 18:26] LABS: POTASSIUM 5.5 mmol/L (3.5-5.1)
[2023-09-29 18:28] LABS: ALBUMIN 3.2 g/dl (3.4-5.0); BLOOD UREA NITROGEN 77.1 mg/dL (7-18); CALCIUM 8.9 mg/dL (8.5-10.1)
[2023-09-29 18:29] LABS: MAGNESIUM 2.6 mg/dL (1.8-2.4)
[2023-09-29 18:31] LABS: CREATININE 2.7 mg/dL (0.55-1.3)
[2023-09-29 18:33] LABS: BILIRUBIN,TOTAL 0.3 mg/dL (0.2-1)
[2023-09-29] MEDS: INSULIN ASPART SLIDING SCALE (NOVOLOG) 1 VIAL SQ SCH (21:47)
[2023-09-29 22:20] LABS: CALCIUM 8.5 mg/dL (8.5-10.1)
[2023-09-29 22:24] LABS: CREATININE 2.5 mg/dL (0.55-1.3)
[2023-09-30] MEDS ORDERED: MORPHINE SULFATE 2 MG/ML SYRINGE ONE (04:26)
[2023-09-30] MEDS: MORPHINE SULFATE 2 MG/ML SYRINGE IVPUSH ONE (04:28)
[2023-09-30 06:34] LABS: BASO % 0.9 % (0-2.0); EOS % 1.4 % (0-4.5); HEMATOCRIT 34.9 % (32.4-45.2); HEMOGLOBIN 11.9 GM/dL (10.7-15.3); LYMPH % 9.5 % (8-40); MCHC 34.1 g/dl (32.0-36.0); MEAN CELL VOLUME 90.8 fl (80-96); MEAN PLT VOLUME 7.2 fl (7.5-11.1); NEUT % 82.2 % (42.8-82.8); PLATELET COUNT 215 10^3/uL (134-434); RBC 3.85 M/mm3 (3.60-5.2); WHITE BLOOD COUNT 10.3 K/mm3 (4.0-10.0)
[2023-09-30 06:54] LABS: POTASSIUM 5.3 mmol/L (3.5-5.1)
[2023-09-30 06:56] LABS: CALCIUM 8.9 mg/dL (8.5-10.1)
[2023-09-30 06:57] LABS: ALBUMIN 3.3 g/dl (3.4-5.0); BLOOD UREA NITROGEN 65.3 mg/dL (7-18); MAGNESIUM 2.3 mg/dL (1.8-2.4)
[2023-09-30 07:00] LABS: CREATININE 2.3 mg/dL (0.55-1.3)
[2023-09-30 07:02] LABS: BILIRUBIN,TOTAL 0.9 mg/dL (0.2-1); TOT PROT 6.3 g/dl (6.4-8.2)
[2023-09-30] MEDS: SEVELAMER CARBONATE 800 MG TAB (FP) PO SCH (08:29)
[2023-09-30] MEDS: INSULIN (LEVEMIR) 100 UNITS/ML UNITS SQ SCH (08:29)
[2023-09-30] MEDS: INSULIN ASPART SLIDING SCALE (NOVOLOG) 1 VIAL SQ SCH ×2 (08:30→11:14)
[2023-09-30] MEDS ORDERED: ACETAMINOPHEN INJECTION 100 ML IVPB ONE ×2 (08:33→14:37)
[2023-09-30] MEDS: ACETAMINOPHEN 1000 MG/100 ML BAG IVPB PRN (08:49)
[2023-09-30] MEDS ORDERED: FUROSEMIDE 40 MG TABLET (FP) ONE (10:39)
[2023-09-30] MEDS: LOSARTAN POTASSIUM 50 MG TABLET PO SCH (11:03)
[2023-09-30] MEDS: SODIUM ZIRCONIUM CYCLOSILICATE (LOKELMA) 10 GM PACKET PO SCH (11:03)
[2023-09-30] MEDS: amLODIPine BESYLATE 10 MG TABLET (FP) PO SCH (11:03)
[2023-09-30] MEDS: FAMOTIDINE 40 MG TABLET PO SCH (11:03)
[2023-09-30] MEDS: FUROSEMIDE 40 MG TABLET (FP) PO SCH (11:03)
[2023-09-30] MEDS: MULTIVITAMINS (DAILY MVI) TABLET (FP) PO SCH (11:04)
[2023-09-30] MEDS ORDERED: INSULIN ASPART SLIDING SCALE (NOVOLOG) 1 VIAL SQ ONE ×3 (11:16→16:57)
[2023-09-30] MEDS ORDERED: HEPARIN NA (PORCINE) 5,000 UNITS/ML 1ML VIAL ONE (14:33)
[2023-09-30] MEDS: HEPARIN NA (PORCINE) 5,000 UNITS/ML 1ML VIAL SQ SCH (14:54)
[2023-09-30 20:08] VITALS: BMI 26.2
[2023-09-30] MEDS: ATORVASTATIN CA 10 MG TABLET (FP) PO SCH (21:01)
[2023-10-01 07:47] LABS: BASO % 0.8 % (0-2.0); EOS % 5.4 % (0-4.5); HEMATOCRIT 33.7 % (32.4-45.2); HEMOGLOBIN 11.5 GM/dL (10.7-15.3); MCH 31.1 pg (25.7-33.7); MCHC 34.1 g/dl (32.0-36.0); MEAN CELL VOLUME 91.1 fl (80-96); MEAN PLT VOLUME 7.9 fl (7.5-11.1); NEUT % 64.8 % (42.8-82.8); PLATELET COUNT 214 10^3/uL (134-434); RBC 3.69 M/mm3 (3.60-5.2); RDW 14.3 % (11.6-15.6); WHITE BLOOD COUNT 9.2 K/mm3 (4.0-10.0)
[2023-10-01 08:04] LABS: POTASSIUM 4.6 mmol/L (3.5-5.1)
[2023-10-01 08:10] LABS: BLOOD UREA NITROGEN 61.1 mg/dL (7-18); CALCIUM 8.8 mg/dL (8.5-10.1)
[2023-10-01 08:11] LABS: MAGNESIUM 2.4 mg/dL (1.8-2.4)
[2023-10-01 08:14] LABS: CREATININE 2.3 mg/dL (0.55-1.3); PHOSPHOROUS 4.1 mg/dL (2.5-4.9)
[2023-10-01 08:16] LABS: BILIRUBIN,TOTAL 0.6 mg/dL (0.2-1); TOT PROT 6.1 g/dl (6.4-8.2)
[2023-10-01] MEDS: FAMOTIDINE 20 MG TABLET PO SCH (09:51)
[2023-10-01] MEDS: ACETAMINOPHEN 325 MG TABLET (FP) PO PRN (15:44)
[2023-10-02 07:37] LABS: POTASSIUM 4.3 mmol/L (3.5-5.1)
[2023-10-02 07:43] LABS: ALBUMIN 2.8 g/dl (3.4-5.0); BLOOD UREA NITROGEN 65.9 mg/dL (7-18); CALCIUM 8.4 mg/dL (8.5-10.1); MAGNESIUM 2.2 mg/dL (1.8-2.4)
[2023-10-02 07:45] LABS: BILIRUBIN,TOTAL 0.4 mg/dL (0.2-1); TOT PROT 5.5 g/dl (6.4-8.2)
[2023-10-02 07:46] LABS: CREATININE 2.4 mg/dL (0.55-1.3)
[2023-10-02 08:13] LABS: BASO % 0.6 % (0-2.0); EOS % 5.6 % (0-4.5); HEMATOCRIT 32.4 % (32.4-45.2); LYMPH % 19.5 % (8-40); MCH 30.9 pg (25.7-33.7); MEAN CELL VOLUME 90.7 fl (80-96); MEAN PLT VOLUME 8.1 fl (7.5-11.1); MONO % 9.2 % (3.8-10.2); NEUT % 65.1 % (42.8-82.8); PLATELET COUNT 199 10^3/uL (134-434); RBC 3.57 M/mm3 (3.60-5.2); RDW 13.8 % (11.6-15.6); WHITE BLOOD COUNT 8.9 K/mm3 (4.0-10.0)
[2023-10-03 08:07] LABS: BASO % 0.7 % (0-2.0); EOS % 4.4 % (0-4.5); HEMATOCRIT 33.4 % (32.4-45.2); HEMOGLOBIN 11.3 GM/dL (10.7-15.3); LYMPH % 18.3 % (8-40); MCH 30.7 pg (25.7-33.7); MCHC 33.8 g/dl (32.0-36.0); MEAN CELL VOLUME 90.9 fl (80-96); MEAN PLT VOLUME 7.8 fl (7.5-11.1); MONO % 8.9 % (3.8-10.2); NEUT % 67.7 % (42.8-82.8); PLATELET COUNT 215 10^3/uL (134-434); RBC 3.67 M/mm3 (3.60-5.2); RDW 13.7 % (11.6-15.6)
[2023-10-03 08:24] LABS: POTASSIUM 4.1 mmol/L (3.5-5.1)
[2023-10-03 08:28] LABS: ALBUMIN 2.7 g/dl (3.4-5.0); BLOOD UREA NITROGEN 63.2 mg/dL (7-18)
[2023-10-03 08:29] LABS: CALCIUM 8.3 mg/dL (8.5-10.1); MAGNESIUM 2.2 mg/dL (1.8-2.4)
[2023-10-03 08:31] LABS: CREATININE 2.5 mg/dL (0.55-1.3)
[2023-10-03 08:33] LABS: BILIRUBIN,TOTAL 0.5 mg/dL (0.2-1); TOT PROT 5.6 g/dl (6.4-8.2)
[2023-10-04 08:20] LABS: HEMATOCRIT 33.5 % (32.4-45.2); HEMOGLOBIN 11.7 GM/dL (10.7-15.3); MCH 30.9 pg (25.7-33.7); MCHC 34.9 g/dl (32.0-36.0); MEAN CELL VOLUME 88.7 fl (80-96); MEAN PLT VOLUME 7.9 fl (7.5-11.1); PLATELET COUNT 233 10^3/uL (134-434); RBC 3.77 M/mm3 (3.60-5.2); RDW 14.1 % (11.6-15.6)
[2023-10-04 08:38] LABS: POTASSIUM 4.1 mmol/L (3.5-5.1)
[2023-10-04 08:40] LABS: CALCIUM 8.8 mg/dL (8.5-10.1)
[2023-10-04 08:41] LABS: ALBUMIN 2.6 g/dl (3.4-5.0); BLOOD UREA NITROGEN 61.6 mg/dL (7-18); MAGNESIUM 2.1 mg/dL (1.8-2.4)
[2023-10-04 08:44] LABS: CREATININE 2.4 mg/dL (0.55-1.3)
[2023-10-04 08:45] LABS: BILIRUBIN,TOTAL 0.4 mg/dL (0.2-1); TOT PROT 5.7 g/dl (6.4-8.2)
[2023-10-05 06:54] LABS: HEMATOCRIT 33.6 % (32.4-45.2); HEMOGLOBIN 11.6 GM/dL (10.7-15.3); MCH 31.1 pg (25.7-33.7); MCHC 34.5 g/dl (32.0-36.0); MEAN PLT VOLUME 7.2 fl (7.5-11.1); PLATELET COUNT 261 10^3/uL (134-434); RBC 3.74 M/mm3 (3.60-5.2); RDW 13.4 % (11.6-15.6); WHITE BLOOD COUNT 8.3 K/mm3 (4.0-10.0)
[2023-10-05 07:10] LABS: POTASSIUM 3.6 mmol/L (3.5-5.1)
[2023-10-05 07:16] LABS: ALBUMIN 2.6 g/dl (3.4-5.0); BLOOD UREA NITROGEN 62.8 mg/dL (7-18); CALCIUM 8.6 mg/dL (8.5-10.1)
[2023-10-05 07:19] LABS: CREATININE 2.3 mg/dL (0.55-1.3)
[2023-10-05 07:21] LABS: BILIRUBIN,TOTAL 0.4 mg/dL (0.2-1); TOT PROT 5.5 g/dl (6.4-8.2)
[2023-10-05] MEDS: ACETAMINOPHEN 1000 MG/100 ML BAG IVPB ONE (22:10)
[2023-10-06] MEDS ORDERED: ACETAMINOPHEN 1000 MG/100 ML BAG IVPB PRN (19:43)
[2023-10-06] MEDS: traMADol HCL 50 MG TABLET PO PRN (21:24)
[2023-10-07 16:45] LABS: HEMOGLOBIN 11.8 GM/dL (10.7-15.3); MCH 30.3 pg (25.7-33.7); MCHC 33.8 g/dl (32.0-36.0); MEAN CELL VOLUME 89.7 fl (80-96); PLATELET COUNT 325 10^3/uL (134-434); RDW 13.6 % (11.6-15.6); WHITE BLOOD COUNT 8.1 K/mm3 (4.0-10.0)
[2023-10-07 17:01] LABS: POTASSIUM 3.7 mmol/L (3.5-5.1)
[2023-10-07 17:03] LABS: ALBUMIN 2.9 g/dl (3.4-5.0); CALCIUM 8.8 mg/dL (8.5-10.1)
[2023-10-07 17:04] LABS: BLOOD UREA NITROGEN 65.8 mg/dL (7-18); MAGNESIUM 2.2 mg/dL (1.8-2.4)
[2023-10-07 17:07] LABS: CREATININE 2.4 mg/dL (0.55-1.3); PHOSPHOROUS 3.8 mg/dL (2.5-4.9)
[2023-10-07 17:08] LABS: BILIRUBIN,TOTAL 0.3 mg/dL (0.2-1); TOT PROT 6.2 g/dl (6.4-8.2)
[2023-10-08] MEDS: TRIMETHOBENZAMIDE HCL 200MG/2ML INJ IM ONE (06:24)
[2023-10-08 07:44] LABS: HEMATOCRIT 32.8 % (32.4-45.2); HEMOGLOBIN 11.1 GM/dL (10.7-15.3); MCH 30.5 pg (25.7-33.7); MCHC 33.9 g/dl (32.0-36.0); MEAN PLT VOLUME 7.4 fl (7.5-11.1); PLATELET COUNT 305 10^3/uL (134-434); RBC 3.64 M/mm3 (3.60-5.2); RDW 13.6 % (11.6-15.6); WHITE BLOOD COUNT 8.2 K/mm3 (4.0-10.0)
[2023-10-08 08:09] LABS: POTASSIUM 3.7 mmol/L (3.5-5.1)
[2023-10-08 08:18] LABS: ALBUMIN 2.7 g/dl (3.4-5.0); CALCIUM 8.7 mg/dL (8.5-10.1)
[2023-10-08 08:19] LABS: BLOOD UREA NITROGEN 66.2 mg/dL (7-18); MAGNESIUM 2.1 mg/dL (1.8-2.4)
[2023-10-08 08:20] LABS: CREATININE 2.2 mg/dL (0.55-1.3)
[2023-10-08 08:21] LABS: PHOSPHOROUS 4.2 mg/dL (2.5-4.9)
[2023-10-08 08:22] LABS: BILIRUBIN,TOTAL 0.5 mg/dL (0.2-1); TOT PROT 5.5 g/dl (6.4-8.2)
[2023-10-08] MEDS: HEPARIN NA (PORCINE) 5,000 UNITS/ML 1ML VIAL SQ SCH (13:37)
[2023-10-09 23:21] VITALS: RESP 18
[2023-10-10 15:10] VITALS: BP 125/52; PULSE 67; TEMP 98.1
== END 2023-10-10 18:20 | DRG 563 ==
LOC: JER 15:57 → INTOOBSV 20:18 → JERBED 20:18 → OBSVTOIN 20:18 → UNDOADMOB 20:18 → JERBED 09-30 19:28 → J4S 09-30 19:28 → OBSVTOIN 10-07 17:09 → JERBED 10-07 17:09 → J4S 10-07 19:57 → UNDODISIN 10-10 18:20
PROVIDERS: ADMIT Internal Medicine; ATTEND Internal Medicine
DX: S82.092A Other fracture of left patella, initial encounter for closed fracture (principal); I45.2 Bifascicular block; I47.29 Other ventricular tachycardia; Q60.0 Renal agenesis, unilateral; N18.4 Chronic kidney disease, stage 4 (severe); I12.9 Hypertensive chronic kidney disease with stage 1 through stage 4 chronic kidney disease, or unspecified chronic kidney disease; E87.5 Hyperkalemia; E11.22 Type 2 diabetes mellitus with diabetic chronic kidney disease; M17.12 Unilateral primary osteoarthritis, left knee; M25.462 Effusion, left knee; E78.5 Hyperlipidemia, unspecified; W01.0XXA Fall on same level from slipping, tripping and stumbling without subsequent striking against object, initial encounter; Y92.099 Unspecified place in other non-institutional residence as the place of occurrence of the external cause; Y99.9 Unspecified external cause status
CPT/HCPCS: 36415; 70450-TC; 71046-TC-FY; 72125-TC; 72170-TC-FY; 73110-TC-LT-FY; 73130-TC-LT-FY; 73560-TC-LT-FY; 73610-TC-LT-FY; 73630-TC-LT; 73700-TC-RT; 76775-TC; 80048; 80053; 82962; 83036; 83735; 84100; 84484; 85025; 85027; 85610; 85730; 86850; 86900; 86901; 93005; 93010; 93306-TC; 97116-GP; 97162-GP; 99285-25; J0131; J1644

== ENCOUNTER 2023-11-03 15:18 | Inpatient (IN) | payer OTHER ==
[2023-11-03 16:53] LABS: BASO % 1.1 % (0-2.0); EOS % 4.7 % (0-4.5); HEMATOCRIT 32.8 % (32.4-45.2); LYMPH % 23.4 % (8-40); MCH 30.4 pg (25.7-33.7); MCHC 33.7 g/dl (32.0-36.0); MEAN CELL VOLUME 90.2 fl (80-96); MEAN PLT VOLUME 7.1 fl (7.5-11.1); MONO % 7.5 % (3.8-10.2); NEUT % 63.3 % (42.8-82.8); PLATELET COUNT 262 10^3/uL (134-434); RBC 3.63 M/mm3 (3.60-5.2); WHITE BLOOD COUNT 7.6 K/mm3 (4.0-10.0)
[2023-11-03 16:56] LABS: EPI CELLS 25 /uL (0-25.1); HYALINE CASTS 0 /uL (0-3.1); PH,URINE 6.5 (5.0-8.0); URINE APPEARANCE CLEAR; URINE BACTERIA 50 /uL (0-1359); URINE BILIRUBIN NEGATIVE (NEGATIVE); URINE COLOR YELLOW; URINE GLUCOSE (UA) TRACE (NEGATIVE); URINE KETONE NEGATIVE (NEGATIVE); URINE LEUK ESTERASE NEGATIVE (NEGATIVE); URINE NITRITE NEGATIVE (NEGATIVE); URINE PROTEIN 3+ (NEGATIVE); URINE RBC 25 /uL (0-23.9); URINE UROBILINOGEN 0.2 mg/dL (0.2-1.0); URINE WBC 18 /uL (0-25.8)
[2023-11-03 17:02] LABS: INR 1.16 (0.83-1.09); PROTHROMBIN TIME (PATIENT) 13.1 SEC (9.7-13.0)
[2023-11-03 17:04] LABS: ACTIVATED PTT 34.3 SECONDS (25.2-36.5)
[2023-11-03 17:19] LABS: POTASSIUM 4.1 mmol/L (3.5-5.1)
[2023-11-03 17:21] LABS: CALCIUM 8.9 mg/dL (8.5-10.1)
[2023-11-03 17:22] LABS: BLOOD UREA NITROGEN 50.3 mg/dL (7-18); MAGNESIUM 2.1 mg/dL (1.8-2.4)
[2023-11-03 17:25] LABS: CREATININE 2.3 mg/dL (0.55-1.3); PHOSPHOROUS 4.3 mg/dL (2.5-4.9)
[2023-11-03 17:27] LABS: BILIRUBIN,TOTAL 0.4 mg/dL (0.2-1); TOT PROT 5.9 g/dl (6.4-8.2)
[2023-11-03 17:30] LABS: N-TERMINAL BNP 2573.2 pg/ml (5-125)
[2023-11-03] MEDS ORDERED: FUROSEMIDE 40 MG/4 ML INJECTABLE VIAL ONE ×2 (17:31→23:13)
[2023-11-03] MEDS: FUROSEMIDE 40 MG/4 ML INJECTABLE VIAL IVPUSH ONE (17:32)
[2023-11-03] MEDS: FUROSEMIDE 40 MG/4 ML INJECTABLE VIAL IVPUSH SCH (23:14)
[2023-11-04 00:35] VITALS: BMI 28.8
[2023-11-04] MEDS: INSULIN ASPART SLIDING SCALE (NOVOLOG) 1 VIAL SQ SCH (06:58)
[2023-11-04] MEDS ORDERED: traMADol HCL 50 MG TABLET PO PRN (07:21)
[2023-11-04 08:06] LABS: HEMATOCRIT 31.1 % (32.4-45.2); HEMOGLOBIN 10.4 GM/dL (10.7-15.3); MCH 30.5 pg (25.7-33.7); MCHC 33.3 g/dl (32.0-36.0); MEAN CELL VOLUME 91.4 fl (80-96); MEAN PLT VOLUME 7.4 fl (7.5-11.1); PLATELET COUNT 256 10^3/uL (134-434); RDW 14.1 % (11.6-15.6)
[2023-11-04 08:17] LABS: PHOSPHOROUS 4.4 mg/dL (2.5-4.9)
[2023-11-04] MEDS: HEPARIN NA (PORCINE) 5,000 UNITS/ML 1ML VIAL SQ SCH (09:32)
[2023-11-04] MEDS: FAMOTIDINE 10 MG TABLET PO SCH (09:32)
[2023-11-04] MEDS: LOSARTAN POTASSIUM 50 MG TABLET PO SCH (09:32)
[2023-11-04] MEDS: amLODIPine BESYLATE 10 MG TABLET (FP) PO SCH (09:32)
[2023-11-04] MEDS: SEVELAMER CARBONATE 800 MG TAB (FP) PO SCH (09:32)
[2023-11-04] MEDS: FLUTICASONE PROP 0.05% 16 GM NASAL SPRAY NS SCH (09:34)
[2023-11-04] MEDS ORDERED: LOSARTAN POTASSIUM 50 MG TABLET PO SCH (10:00)
[2023-11-04 13:34] LABS: POTASSIUM 4.2 mmol/L (3.5-5.1)
[2023-11-04 13:36] LABS: CALCIUM 8.9 mg/dL (8.5-10.1)
[2023-11-04 13:37] LABS: ALBUMIN 2.7 g/dl (3.4-5.0); BLOOD UREA NITROGEN 52.4 mg/dL (7-18)
[2023-11-04 13:40] LABS: CREATININE 2.4 mg/dL (0.55-1.3)
[2023-11-04 13:41] LABS: BILIRUBIN,TOTAL 0.5 mg/dL (0.2-1); TOT PROT 5.5 g/dl (6.4-8.2)
[2023-11-04] MEDS ORDERED: FUROSEMIDE 40 MG/4 ML INJECTABLE VIAL IVPUSH SCH (14:00)
[2023-11-04] MEDS: FUROSEMIDE 40 MG/4 ML INJECTABLE VIAL IVPUSH SCH (14:46)
[2023-11-04] MEDS: ATORVASTATIN CA 20 MG TABLET (FP) PO SCH (21:20)
[2023-11-04] MEDS: ACETAMINOPHEN 1000 MG/100 ML BAG IVPB ONE (22:14)
[2023-11-05 07:54] LABS: HEMATOCRIT 30.6 % (32.4-45.2); MCH 30.1 pg (25.7-33.7); MCHC 32.8 g/dl (32.0-36.0); MEAN CELL VOLUME 91.8 fl (80-96); MEAN PLT VOLUME 8.9 fl (7.5-11.1); PLATELET COUNT 242 10^3/uL (134-434); RBC 3.33 M/mm3 (3.60-5.2); RDW 13.7 % (11.6-15.6); WHITE BLOOD COUNT 7.6 K/mm3 (4.0-10.0)
[2023-11-05 08:11] LABS: EPI CELLS 17 /uL (0-25.1); HYALINE CASTS 0 /uL (0-3.1); URINE APPEARANCE CLEAR; URINE BACTERIA 65 /uL (0-1359); URINE BILIRUBIN NEGATIVE (NEGATIVE); URINE COLOR YELLOW; URINE GLUCOSE (UA) NEGATIVE (NEGATIVE); URINE KETONE NEGATIVE (NEGATIVE); URINE LEUK ESTERASE TRACE (NEGATIVE); URINE NITRITE NEGATIVE (NEGATIVE); URINE PROTEIN 3+ (NEGATIVE); URINE RBC 27 /uL (0-23.9); URINE UROBILINOGEN 0.2 mg/dL (0.2-1.0); URINE WBC 26 /uL (0-25.8)
[2023-11-05 08:15] LABS: POTASSIUM 4.1 mmol/L (3.5-5.1)
[2023-11-05 08:22] LABS: ALBUMIN 2.6 g/dl (3.4-5.0); BLOOD UREA NITROGEN 49.5 mg/dL (7-18); CALCIUM 8.6 mg/dL (8.5-10.1)
[2023-11-05 08:24] LABS: BILIRUBIN,TOTAL 0.6 mg/dL (0.2-1); TOT PROT 5.3 g/dl (6.4-8.2)
[2023-11-05 08:26] LABS: CREATININE 2.5 mg/dL (0.55-1.3)
[2023-11-05] MEDS: FUROSEMIDE 40 MG/4 ML INJECTABLE VIAL IVPUSH SCH (09:13)
[2023-11-05] MEDS: ACETAMINOPHEN 1000 MG/100 ML BAG IVPB ONE (17:38)
[2023-11-06] MEDS: ACETAMINOPHEN 500 MG TABLET (FP) PO ONE (06:59)
[2023-11-06 08:02] LABS: CALCIUM 8.5 mg/dL (8.5-10.1)
[2023-11-06 08:03] LABS: ALBUMIN 2.7 g/dl (3.4-5.0); BLOOD UREA NITROGEN 52.9 mg/dL (7-18)
[2023-11-06 08:05] LABS: CREATININE 2.7 mg/dL (0.55-1.3)
[2023-11-06 08:07] LABS: BILIRUBIN,TOTAL 0.5 mg/dL (0.2-1); TOT PROT 5.5 g/dl (6.4-8.2)
[2023-11-06] MEDS: FUROSEMIDE 40 MG TABLET (FP) PO SCH (09:32)
[2023-11-06] MEDS: traMADol HCL 50 MG TABLET PO PRN (15:29)
[2023-11-06] MEDS: ONDANSETRON 4 MG/2 ML VIAL IVPUSH ONE (20:13)
[2023-11-07 07:54] LABS: HEMATOCRIT 31.4 % (32.4-45.2); HEMOGLOBIN 10.6 GM/dL (10.7-15.3); MCH 31.1 pg (25.7-33.7); MCHC 33.6 g/dl (32.0-36.0); MEAN CELL VOLUME 92.4 fl (80-96); MEAN PLT VOLUME 7.4 fl (7.5-11.1); PLATELET COUNT 271 10^3/uL (134-434); WHITE BLOOD COUNT 7.4 K/mm3 (4.0-10.0)
[2023-11-07 07:58] LABS: POTASSIUM 4.4 mmol/L (3.5-5.1)
[2023-11-07 08:01] LABS: ALBUMIN 2.7 g/dl (3.4-5.0); BLOOD UREA NITROGEN 55.7 mg/dL (7-18); CALCIUM 8.8 mg/dL (8.5-10.1)
[2023-11-07 08:05] LABS: CREATININE 2.7 mg/dL (0.55-1.3)
[2023-11-07 08:06] LABS: BILIRUBIN,TOTAL 0.5 mg/dL (0.2-1); TOT PROT 5.7 g/dl (6.4-8.2)
[2023-11-07] MEDS: COLCHICINE 0.6 MG TAB PO ONE (11:59)
[2023-11-07] MEDS: ACETAMINOPHEN 1000 MG/100 ML BAG IVPB PRN (12:16)
[2023-11-07 14:37] LABS: URIC ACID 9.9 mg/dL (2.6-7.2)
[2023-11-08] MEDS ORDERED: INSULIN ASPART SLIDING SCALE (NOVOLOG) 1 VIAL SQ ONE (06:45)
[2023-11-08 09:26] LABS: BASO % 0.9 % (0-2.0); EOS % 5.2 % (0-4.5); HEMATOCRIT 29.3 % (32.4-45.2); HEMOGLOBIN 9.7 GM/dL (10.7-15.3); LYMPH % 22.2 % (8-40); MCH 30.4 pg (25.7-33.7); MCHC 33.2 g/dl (32.0-36.0); MEAN CELL VOLUME 91.6 fl (80-96); MEAN PLT VOLUME 8.6 fl (7.5-11.1); MONO % 8.2 % (3.8-10.2); NEUT % 63.5 % (42.8-82.8); PLATELET COUNT 251 10^3/uL (134-434); RDW 13.8 % (11.6-15.6); WHITE BLOOD COUNT 6.9 K/mm3 (4.0-10.0)
[2023-11-08 09:49] LABS: POTASSIUM 4.5 mmol/L (3.5-5.1)
[2023-11-08 09:58] LABS: ALBUMIN 2.6 g/dl (3.4-5.0); BLOOD UREA NITROGEN 51.6 mg/dL (7-18); CREATININE 2.7 mg/dL (0.55-1.3)
[2023-11-08 09:59] LABS: MAGNESIUM 2.3 mg/dL (1.8-2.4)
[2023-11-08 10:00] LABS: BILIRUBIN,TOTAL 0.4 mg/dL (0.2-1); TOT PROT 5.6 g/dl (6.4-8.2)
[2023-11-08] MEDS: DOCUSATE SODIUM 100 MG CAPSULE (FP) PO SCH (10:44)
[2023-11-08] MEDS: predniSONE 20 MG TABLET (UD) PO ONE (14:59)
[2023-11-08] MEDS: ATORVASTATIN CA 10 MG TABLET (FP) PO SCH (21:26)
[2023-11-08] MEDS: ACETAMINOPHEN 1000 MG/100 ML BAG IVPB ONE (22:51)
[2023-11-09 06:01] VITALS: RESP 18
[2023-11-09 08:39] LABS: BASO % 0.2 % (0-2.0); HEMATOCRIT 31.4 % (32.4-45.2); HEMOGLOBIN 10.3 GM/dL (10.7-15.3); LYMPH % 10.6 % (8-40); MCH 29.9 pg (25.7-33.7); MCHC 32.8 g/dl (32.0-36.0); MEAN CELL VOLUME 91.2 fl (80-96); MEAN PLT VOLUME 7.5 fl (7.5-11.1); MONO % 4.7 % (3.8-10.2); NEUT % 84.5 % (42.8-82.8); PLATELET COUNT 312 10^3/uL (134-434); RBC 3.44 M/mm3 (3.60-5.2); RDW 13.7 % (11.6-15.6); WHITE BLOOD COUNT 7.3 K/mm3 (4.0-10.0)
[2023-11-09 08:49] LABS: CALCIUM 8.8 mg/dL (8.5-10.1)
[2023-11-09 08:50] LABS: ALBUMIN 2.7 g/dl (3.4-5.0); BLOOD UREA NITROGEN 54.6 mg/dL (7-18)
[2023-11-09 08:53] LABS: CREATININE 2.8 mg/dL (0.55-1.3)
[2023-11-09 08:54] LABS: BILIRUBIN,TOTAL 0.4 mg/dL (0.2-1); TOT PROT 5.9 g/dl (6.4-8.2)
[2023-11-09] MEDS ORDERED: predniSONE 20 MG TABLET (UD) PO SCH (10:00)
[2023-11-09] MEDS ORDERED: COLCHICINE 0.6 MG TAB PO SCH (10:00)
[2023-11-09] MEDS: predniSONE 20 MG TABLET (UD) PO SCH (10:03)
[2023-11-09 13:47] VITALS: BP 154/62; PULSE 75; TEMP 98.2
== END 2023-11-09 13:55 | disposition home health service (06) | DRG 291 ==
LOC: JER 15:18 → JERBED 20:21 → J4W 11-04 02:18
PROVIDERS: ADMIT Student in an Organized Health Care Education/Training Program; ATTEND Internal Medicine
DX: I13.2 Hypertensive heart and chronic kidney disease with heart failure and with stage 5 chronic kidney disease, or end stage renal disease (principal); I50.33 Acute on chronic diastolic (congestive) heart failure; N18.6 End stage renal disease; E11.22 Type 2 diabetes mellitus with diabetic chronic kidney disease; E78.5 Hyperlipidemia, unspecified; M10.9 Gout, unspecified; E87.70 Fluid overload, unspecified; K59.00 Constipation, unspecified
CPT/HCPCS: 36415; 71045-TC-FY; 73562-TC-LT-FY; 80053; 80061; 81003; 82962; 83735; 83880; 84100; 84439; 84443; 84550; 85025; 85027; 85610; 85730; 87086; 93005; 93010; 93970-TC; 97116-GP; 97162-GP; 99285-25; J0131; J1644